=== PATIENT | male | born 1980 | race Caucasian/White ===

== ENCOUNTER 2020-02-19 15:51 | Emergency (ER) | payer MEDICAID ==
[~2020-02-19] VITALS: Ht 177.8 cm; Wt 77.1 kg
[2020-02-19 15:51] VITALS: BP_SYST 139
--- NOTE | 2020-02-19 15:51 | NUR ---
BROUGHT IN BY [facility], ASSESSED BY DR ACEVEDO UPON ARRIVAL, TRIAGED AND VSS, DR ACEVEDO STATES TO TAKE PT TO TRIAGE ROOM. PT WALKED TO TRIAGE ROOM WITH STEADY GAIT
--- NOTE | 2020-02-19 16:15 | NUR ---
PT WALKING AROUND WAITING ROOM. AMBULATORY WITH STEADY GAIT.
[2020-02-19 16:56] LABS: BASOPHILS # (AUTO) 0.1 K/uL (0.0-0.2); BASOPHILS % (AUTO) 1.3 % (0.0-2.0); EOSINOPHILS % (AUTO) 0.4 % (0.0-4.0); HEMATOCRIT 42.5 % (36-54); HEMOGLOBIN 14.5 g/dL (14.0-18.0); LYMPHOCYTES # (AUTO) 1.5 K/uL (1.0-5.5); LYMPHOCYTES % (AUTO) 19.4 % (20.5-51.5); MEAN CORPUSCULAR HEMOGLOBIN 31 pg (27-31); MEAN CORPUSCULAR HGB CONC 34 % (32-36); MEAN CORPUSCULAR VOLUME 90 fL (79.0-98.0); MONOCYTES # (AUTO) 0.5 K/uL (0.0-1.0); MONOCYTES % (AUTO) 6.9 % (1.7-9.3); NEUTROPHILS # (AUTO) 5.6 K/uL (1.8-7.7); PLATELET COUNT (AUTO) 256 K/uL (130-430); RED CELL DISTRIBUTION WIDTH 13.3 % (9.0-15.0); WHITE BLOOD COUNT (AUTO) 7.7 K/uL (4.8-10.8)
[2020-02-19 17:14] LABS: ANION GAP 8 (5-15); CHLORIDE 100 mmol/L (98-107); CREATININE 1.04 mg/dL (0.55-1.30); GLUCOSE 132 mg/dL (70-99); POTASSIUM 3.7 mmol/L (3.5-5.1); SODIUM SERUM 131 mmol/L (136-145); UREA NITROGEN, BLOOD 11 mg/dL (8-21)
[2020-02-19 17:16] LABS: GFR AFRICAN AMERICAN 103 mL/min (>90)
[2020-02-19 17:27] LABS: ALANINE AMINOTRANSFERASE 171 U/L (12-78); ALBUMIN 4.4 g/dL (3.4-4.8); ALCOHOL, BLOOD 4 mg/dL (<10); ASPARTATE AMINOTRANSFERASE 62 U/L (10-37); TOTAL BILIRUBIN 0.2 mg/dL (0.0-1.0)
--- NOTE | 2020-02-19 17:43 | NUR ---
PT ELOPED FROM WAITING ROOM.
--- NOTE | 2020-02-19 17:44 | NUR ---
SPOKE WITH PTS MOTHER AND EXPLAINED SITUATION OF PT LEAVING WAITING ROOM. MOTHER STATES SHE UNDERSTANDS
== END 2020-02-19 17:43 | disposition left against medical advice (07) ==
LOC: SED 15:51
DX: R55 Syncope and collapse (principal); F19.10 Other psychoactive substance abuse, uncomplicated
CPT/HCPCS: 36415; 80053; 84484; 85025; 93005; 99284; G0482